=== PATIENT | male | born 1960 | race Asian ===

== ENCOUNTER 2023-11-13 15:48 | Emergency (ER) | payer OTHER ==
[~2023-11-13] VITALS: Ht 177.8 cm; Wt 81.6 kg
[2023-11-13 16:06] VITALS: BP 119/86; PULSE 74; RESP 16; TEMP 100.7; O2SAT 97
[2023-11-13] MEDS: ACETAMINOPHEN 325 MG TAB PO ONE (16:45)
[2023-11-13] MEDS ORDERED: BENZ-300 PO (16:52)
[2023-11-13] MEDS ORDERED: ACET-10509 PO (16:52)
[2023-11-13] MEDS ORDERED: BENZ200C4 PO (16:52)
[2023-11-13 17:16] VITALS: BP 119/86; PULSE 74; RESP 16; TEMP 100.7; O2SAT 97
[2023-11-13 18:18] LABS: FLU A ANTIGEN negative (NEGATIVE); FLU B ANTIGEN negative (NEGATIVE)
[2023-11-13] MEDS ORDERED: NIRM1TAB9 PO (19:12)
[2023-11-13 19:36] LABS: ALBUMIN 3.8 g/dL (3.4-5.0); ANION GAP 14.9 (8-16); CALCIUM 8.9 mg/dL (8.5-10.1); POTASSIUM 3.9 mmol/L (3.5-5.1); TOTAL BILIRUBIN 0.3 mg/dL (0.0-1.0); TOTAL PROTEIN, SERUM 7.8 g/dL (6.4-8.2)
== END 2023-11-13 17:16 | disposition home or self-care (01) ==
LOC: MED 15:48
DX: U07.1 COVID-19 (principal); J06.9 Acute upper respiratory infection, unspecified; E11.9 Type 2 diabetes mellitus without complications; Z79.1 Long term (current) use of non-steroidal anti-inflammatories (NSAID); Z79.899 Other long term (current) drug therapy
CPT/HCPCS: 36415; 80053; 87081; 99283

== ENCOUNTER 2023-12-11 14:31 | Emergency (ER) | payer OTHER ==
[~2023-12-11] VITALS: Ht 177.8 cm; Wt 77.1 kg
[~2023-12-11 14:31] MED LIST: ACET-10509 PO; BENZ-300 PO; BENZ200C4 PO; NIRM1TAB9 PO
[2023-12-11 14:51] VITALS: BP 143/83; PULSE 80; RESP 16; TEMP 98.5; O2SAT 97
[2023-12-11] MEDS: KETOROLAC 60 MG/2 ML VIAL IM ONE (15:52)
[2023-12-11] MEDS ORDERED: IBUP-2213 PO (16:02)
[2023-12-11] MEDS ORDERED: PSEU120T22 PO (16:02)
[2023-12-11] MEDS ORDERED: ACET-8905 PO (16:02)
[2023-12-11 16:24] VITALS: BP 133/82; PULSE 66; RESP 16; TEMP 98.5; O2SAT 97
== END 2023-12-11 16:24 | disposition home or self-care (01) ==
LOC: MED 14:31
DX: R51.9 Headache, unspecified (principal); R09.81 Nasal congestion; Z79.899 Other long term (current) drug therapy
CPT/HCPCS: 70450; 82948; 96372; 99285; J1885

== ENCOUNTER 2023-12-22 11:04 | Emergency (ER) | payer OTHER ==
[~2023-12-22] VITALS: Ht 177.8 cm; Wt 77.2 kg
[~2023-12-22 11:04] MED LIST changes: +ACET-8905 PO; +IBUP-2213 PO; +PSEU120T22 PO
[2023-12-22 11:13] VITALS: BP 150/71; PULSE 79; RESP 17; TEMP 97.7; O2SAT 98
[2023-12-22 11:50] VITALS: BP 150/71; PULSE 79; RESP 17; TEMP 97.7; O2SAT 98
== END 2023-12-22 11:50 | disposition home or self-care (01) ==
LOC: MED 11:04
DX: G44.89 Other headache syndrome (principal); R09.81 Nasal congestion; E11.9 Type 2 diabetes mellitus without complications; Z98.890 Other specified postprocedural states; Z79.1 Long term (current) use of non-steroidal anti-inflammatories (NSAID); Z79.899 Other long term (current) drug therapy
CPT/HCPCS: 99281